=== PATIENT | male | born 1955 | race Caucasian/White ===

== ENCOUNTER 2017-04-23 10:28 | Emergency (ER) | payer MEDICAID, OTHER ==
[~2017-04-23 10:28] MED LIST: Z.0.NO CURRENT MEDS
[2017-04-23 10:29] VITALS: BP 129/66; PULSE 60; RESP 17; TEMP 98.6; O2SAT 99
[2017-04-23] MEDS ORDERED: IOHEXOL 350 MG/ML 10 ML VIAL (for RAD DIAG) IVCONTRAST ONE (10:29)
[2017-04-23] MEDS ORDERED: SODIUM CHLORIDE 0.9% FLUSH 10 ML FLUSH IV FLUSH PRN (11:15)
--- NOTE | 2017-04-23 11:17 | PD ---
HPI Chief Complaint: GI Complaint Time Seen by Provider: 10:57 Travel History International Travel<30 days: No Contact w/Intl Traveler<30days: No Traveled to known affect area: No History of Present Illness HPI 61-year-old male presents to the emergency department for evaluation of lower abdominal pain for 1 month. He also reports some rectal pressure and intermittent rectal bleeding. He states that when he wipes after having a bowel movement he'll have some bright red blood on the toilet paper. He states last time this happened was 2 days ago. He states he has had some intermittent diarrhea as well. No fevers or chills. No chest pain or shortness of breath. No nausea, vomiting. Patient denies any surgeries in the past. He has no chronic medical problems and takes no prescribed medications. He denies any previous surgeries. PFSH Past Medical History Medical History: Denies Significant Hx Cancer: No Diabetes: No Diminished Hearing: No Fibromyalgia: No Hepatitis: No Hiatal Hernia: No Immunizations Current: Yes Thyroid Disease: No Influenza Vaccination: No Past Surgical History Abdominal Surgery: No Cardiac Surgery: No Ear Surgery: No Endocrine Surgery: No Eye Surgery: No Genitourinary Surgery: Yes (LEFT TESTICLE) Gynecologic Surgery: No Oral Surgery: No Pacemaker: No Thoracic Surgery: No Other Surgery: Yes (RIGHT HAND SURGERY) Social History Alcohol Use: Yes (OCCASIONALLY) Tobacco Use: No Substance Use: Yes (MARIJUANA) Allergies-Medications (Allergen,Severity, Reaction): Coded Allergies: No Known Allergies (Verified , 04/23/17) Reported Meds & Prescriptions Reported Meds & Active Scripts Active No Active Prescriptions or Reported Medications Review of Systems Except as stated in HPI: all other systems reviewed are Neg Physical Exam Narrative GENERAL: Well-nourished, well-developed male patient, afebrile. SKIN: Focused skin assessment warm/dry. HEAD: Normocephalic. Atraumatic. EYES: No scleral icterus. No injection or drainage. NECK: Supple, trachea midline. No JVD or lymphadenopathy. CARDIOVASCULAR: Regular rate and rhythm without murmurs, gallops, or rubs. RESPIRATORY: Breath sounds equal bilaterally. No accessory muscle use. Lungs sounds are clear to auscultation. GASTROINTESTINAL: Abdomen soft, non-tender, nondistended. No abdominal pain to palpation MUSCULOSKELETAL: No cyanosis, or edema. BACK: Nontender without obvious deformity. No CVA tenderness. RECTAL EXAM: No masses or tenderness, stool is brown. Hemoccult is negative. This exam was done with Pedro RN, at bedside. Data Data Last Documented VS Vital Signs Date Time Temp Pulse Resp B/P (MAP) Pulse Ox O2 Delivery O2 Flow Rate FiO2 04/23/17 10:29 98.6 60 17 129/66 (87) 99 Orders Orders Complete Blood Count With Diff (04/23/17 11:07) Comprehensive Metabolic Panel (04/23/17 11:07) Lipase (04/23/17 11:07) Iv Access Insert/Monitor (04/23/17 11:07) Ecg Monitoring (04/23/17 11:07) Oximetry (04/23/17 11:07) Sodium Chloride 0.9% Flush (Ns Flush) (04/23/17 11:15) Ct Abd/Pel W Iv Contrast(Rout) (04/23/17 ) Iohexol 350 Inj (Omnipaque 350 Inj) (04/23/17 10:29) Labs Laboratory Tests Test 04/23/17 11:10 White Blood Count 8.1 TH/MM3 Red Blood Count 5.25 MIL/MM3 Hemoglobin 15.9 GM/DL Hematocrit 47.4 % Mean Corpuscular Volume 90.3 FL Mean Corpuscular Hemoglobin 30.2 PG Mean Corpuscular Hemoglobin Concent 33.5 % Red Cell Distribution Width 13.7 % Platelet Count 195 TH/MM3 Mean Platelet Volume 8.6 FL Neutrophils (%) (Auto) 54.4 % Lymphocytes (%) (Auto) 33.1 % Monocytes (%) (Auto) 7.0 % Eosinophils (%) (Auto) 5.0 % Basophils (%) (Auto) 0.5 % Neutrophils # (Auto) 4.4 TH/MM3 Lymphocytes # (Auto) 2.7 TH/MM3 Monocytes # (Auto) 0.6 TH/MM3 Eosinophils # (Auto) 0.4 TH/MM3 Basophils # (Auto) 0.0 TH/MM3 CBC Comment DIFF FINAL Differential Comment Blood Urea Nitrogen 14 MG/DL Creatinine 0.91 MG/DL Random Glucose 88 MG/DL Total Protein 7.8 GM/DL Albumin 4.3 GM/DL Calcium Level 9.0 MG/DL Alkaline Phosphatase 58 U/L Aspartate Amino Transf (AST/SGOT) 17 U/L Alanine Aminotransferase (ALT/SGPT) 33 U/L Total Bilirubin 0.5 MG/DL Sodium Level 138 MEQ/L Potassium Level 4.5 MEQ/L Chloride Level 103 MEQ/L Carbon Dioxide Level 28.6 MEQ/L Anion Gap 6 MEQ/L Estimat Glomerular Filtration Rate 85 ML/MIN Lipase 212 U/L [facility] Medical Decision Making Medical Screen Exam Complete: Yes Emergency Medical Condition: Yes Medical Record Reviewed: Yes Interpretation(s) CT abdomen/pelvis - CONCLUSION: Normal examination. Differential Diagnosis Colitis versus diverticulitis versus hemorrhoids Narrative Course 61-year-old male presents to the emergency department for evaluation of lower abdominal pain, rectal pressure that has been ongoing for 1 month. He does appear well on exam. No abdominal pain to palpation. CBC is unremarkable. CMP shows no acute abnormality. Lipase is 212. CT scan of the abdomen/pelvis with IV contrast is ordered and pending due to patient's age and no previous study. CT abdomen/pelvis shows no acute abnormality. My attending physician, Dr. Blackwood, saw patient as well. He agrees with plan and disposition. Labs and imaging are reassuring. Patient is instructed to follow up with GI for colonoscopy. He verbalizes agreement and understanding. Diagnosis Primary Impression: Abdominal pain Qualified Codes: R10.9 - Unspecified abdominal pain Referrals: Primary Care Physician call for appointment Patient Instructions: Abdominal Pain (ED), General Instructions Additional Instructions: Follow up with billet heater. Return to the emergency department for any acute, worsening of symptoms. Med/Other Pt SpecificInfo: No Change to Meds Scripts No Active Prescriptions or Reported Meds Disposition: 01 DISCHARGE HOME Condition: Stable Petrona Fountain ELIZABETH Apr 23, 2017 11:17
[2017-04-23 11:28] LABS: AUTOMATED NEUTROPHIL # 4.4 TH/MM3 (1.8-7.7); BASOPHIL % 0.5 % (0.0-2.0); EOSINOPHIL # 0.4 TH/MM3 (0-0.4); HEMATOCRIT 47.4 % (39.0-51.0); HEMO FLAGS DIFF FINAL; LYMPH % 33.1 % (9.0-44.0); LYMPHOCYTE # 2.7 TH/MM3 (1.0-4.8); MEAN CELL VOLUME 90.3 FL (80.0-100.0); MEAN CORPUSCULAR HEMOGLOBIN 30.2 PG (27.0-34.0); MEAN CORPUSCULAR HGB CONC 33.5 % (32.0-36.0); NEUT % 54.4 % (16.0-70.0); PLATELET COUNT 195 TH/MM3 (150-450); RED BLOOD COUNT 5.25 MIL/MM3 (4.50-5.90); RED CELL DISTRIBUTION WIDTH 13.7 % (11.6-17.2); WHITE BLOOD COUNT 8.1 TH/MM3 (4.0-11.0)
[2017-04-23 11:42] LABS: ALT (GPT) 33 U/L (12-78); ANION GAP 6 MEQ/L (5-15); AST (GOT) 17 U/L (15-37); BICARBONATE 28.6 MEQ/L (21.0-32.0); BLOOD UREA NITROGEN 14 MG/DL (7-18); CHLORIDE 103 MEQ/L (98-107); GLOMERULAR FILTRATION RATE 85 ML/MIN (>89); POTASSIUM 4.5 MEQ/L (3.5-5.1); SODIUM (NA) 138 MEQ/L (136-145)
[2017-04-23 11:44] LABS: ALKALINE PHOSPHATASE 58 U/L (45-117); TOTAL BILIRUBIN ADULT 0.5 MG/DL (0.2-1.0)
--- NOTE | 2017-04-23 14:04 | RADRPT ---
EXAM DATE/TIME: 04/23/2017 13:33 [facility] COMPARISON: No previous studies available for comparison. INDICATIONS : Patient complains of lower abdominal pain with blood in stool, IV CONTRAST: 95 cc Omnipaque 350 (iohexol) IV ORAL CONTRAST: No oral contrast ingested. RADIATION DOSE: 9.72 CTDIvol (mGy) MEDICAL HISTORY : None SURGICAL HISTORY : left testicle surgery ENCOUNTER: Initial ACUITY: 1 day PAIN SCALE: 0/10 LOCATION: lower quadrant TECHNIQUE: Volumetric scanning of the abdomen and pelvis was performed. Using automated exposure control and ad justment of the mA and/or kV according to patient size, radiation dose was kept as low as reasonably achievable to obtain optimal diagnostic quality images. DICOM format image data is available electro nically for review and comparison. FINDINGS: LOWER LUNGS: The visualized lower lungs are clear. LIVER: Homogeneous density without lesion. There is no dilation of the biliary tree. No calcified gallston es. SPLEEN: Normal size without lesion. PANCREAS: Within normal limits. KIDNEYS: Normal in size and shape. There is no mass, stone or hydronephrosis. ADRENAL GLANDS: Both minimally prominent likely hyperplasia. VASCULAR: There is no aortic aneurysm. BOWEL/MESENTERY: The stomach, small bowel, and colon demonstrate no acute abnormality. There is no free intraperitone al air or fluid. ABDOMINAL WALL: Within normal limits. RETROPERITONEUM: There is no lymphadenopathy. BLADDER: No wall thickening or mass. REPRODUCTIVE: Within normal limits. INGUINAL: There is no lymphadenopathy or hernia. MUSCULOSKELETAL: Within normal limits for patient age. CONCLUSION: Normal examination. Milind Aguila MD on April 23, 2017 at 14:01 Board Certified Radiologist. This report was verified electronically.
== END 2017-04-23 14:25 | disposition home or self-care (01) ==
LOC: NEPD 10:28
DX: R10.30 Lower abdominal pain, unspecified (principal)
CPT/HCPCS: 74177; 80053; 83690; 85025; 99284; Q9967

== ENCOUNTER 2017-09-27 10:50 | Emergency (ER) | payer MEDICAID ==
[2017-09-27 11:19] VITALS: BP 138/67; PULSE 63; RESP 18; TEMP 98.5; O2SAT 98
--- NOTE | 2017-09-27 12:28 | PD ---
HPI Chief Complaint: Skin Problem Time Seen by Provider: 12:15 Travel History International Travel<30 days: No Contact w/Intl Traveler<30days: No Traveled to known affect area: No History of Present Illness HPI 62-year-old male presents to the emergency department with concern of a spot on his right calf that he has noticed a few months ago. He thinks it may be melanoma. He says the area is tender to touch and he can palpate some bumps under the skin. He denies paresthesias, loss of sensation, leg edema. Denies fever, vomiting. Rates pain 4/10. Describes it as a burning sensation in his leg. Says it feels like something is wrong with his circulation. Pain is worse with walking. Denies history of blood clots. Denies anticoagulant therapy. Has not taken any medication or tried any treatments to alleviate his symptoms. No primary care provider. Denies significant past medical history. No known allergies. Has no other medical complaints. No other modifying factors or associated signs and symptoms. PFSH Past Medical History Cancer: No Diabetes: No Diminished Hearing: No Fibromyalgia: No Hepatitis: No Hiatal Hernia: No Immunizations Current: Yes Thyroid Disease: No Past Surgical History Abdominal Surgery: No Cardiac Surgery: No Ear Surgery: No Endocrine Surgery: No Eye Surgery: No Genitourinary Surgery: Yes (LEFT TESTICLE) Gynecologic Surgery: No Oral Surgery: No Pacemaker: No Thoracic Surgery: No Other Surgery: Yes (RIGHT HAND SURGERY) Social History Alcohol Use: No Tobacco Use: No Substance Use: No Allergies-Medications (Allergen,Severity, Reaction): Coded Allergies: No Known Allergies (Verified Adverse Reaction, Unknown, 09/27/17) Reported Meds & Prescriptions Reported Meds & Active Scripts Active No Active Prescriptions or Reported Medications Review of Systems Except as stated in HPI: all other systems reviewed are Neg Physical Exam Narrative GENERAL: Well-nourished, well-developed male patient, in no acute distress SKIN: Warm and dry. Small, proximally 0.5 cm in diameter, flesh-colored, slightly raised palpable skin lesion to the mid right calf. Small palpable nodule under the skin, less than 0.5 cm, to the right calf. HEAD: Atraumatic. Normocephalic. EYES: Pupils equal and round. No scleral icterus. No injection or drainage. ENT: Mucosa pink and moist. Airway patent. NECK: Trachea midline. CARDIOVASCULAR: Regular rate. RESPIRATORY: No accessory muscle use. GASTROINTESTINAL: Flat. MUSCULOSKELETAL: Right lower extremity supple and non-tense with 2+ pedal pulse and sensory intact without erythema or edema. Reproducible tenderness on palpation to the posterior upper calf. No obvious deformities. No clubbing. No cyanosis. No edema. NEUROLOGICAL: Awake and alert. Oriented 3. No obvious cranial nerve deficits. Motor grossly within normal limits. Normal speech. PSYCHIATRIC: Appropriate mood and affect; insight and judgment normal. Data Data Last Documented VS Vital Signs Date Time Temp Pulse Resp B/P (MAP) Pulse Ox O2 Delivery O2 Flow Rate FiO2 09/27/17 11:19 98.5 63 18 138/67 (90) 98 Orders Orders Us Leg Venous Doppler (09/27/17 ) Ed Discharge Order (09/27/17 13:44) [facility] Medical Decision Making Medical Screen Exam Complete: Yes Emergency Medical Condition: Yes Medical Record Reviewed: Yes Differential Diagnosis DVT, superficial thrombosis, skin lesion, nodule Narrative Course 62-year-old male with right calf pain and a palpable nodule under the skin. There is also a slightly raised, flesh-colored lesion on the skin of the calf. There is no erythema, edema, warmth to the site. There is tenderness on palpation. I will order venous Doppler ultrasound of the right leg to rule out blood clot. I offered patient pain medication and he declined. 1339: Right leg venous Doppler ultrasound concludes: Lower Extremity Ultrasound 09/27/17 0000 Signed Impressions: Service Date/Time: Wednesday, September 27, 2017 12:44 - CONCLUSION: Negative for deep venous thrombosis. Solid 0.4 mm subcutaneous nodule, palpable of uncertain significance Mak Santamaria MD FACR Patient provided a copy of the ultrasound report. Instructed patient to follow up with safety grooving machine operator. I for the patient prescription for pain medication and he declined. Instructed patient to follow up with primary care provider. Patient verbalizes understanding and agreement with treatment plan. Patient is medically cleared and stable for discharge. Discussed reasons to return to the emergency department. Patient agrees with treatment plan. The patients vital signs are stable and the patient is stable for outpatient follow-up and treatment. Patient discharged home, stable and in no acute distress. Diagnosis Primary Impression: Right leg pain Additional Impression: Subcutaneous nodule Referrals: [facility] Manager Housekeeping Primary Care Physician Patient Instructions: General Instructions, Leg Pain (ED) Additional Instructions: Ibuprofen or Tylenol instructed nothing for pain Avoid aggravating activity Follow-up with dermatology Follow-up with primary care provider Return to the emergency department immediately with worsening of symptoms Med/Other Pt SpecificInfo: No Change to Meds, No Meds Exist/No RX given Scripts No Active Prescriptions or Reported Meds Disposition: 01 DISCHARGE HOME Condition: Stable Marie Pierre Sep 27, 2017 12:27
--- NOTE | 2017-09-27 13:16 | RADRPT ---
EXAM DATE/TIME: 09/27/2017 12:44 [facility] COMPARISON: No previous studies available for comparison. INDICATIONS : Right leg pain. MEDICAL HISTORY : Right leg pain. SURGICAL HISTORY : Left testicle surgery. Right hand surgery. ENCOUNTER: Initial ACUITY: 1 day PAIN SCORE: 0/10 LOCATION: Right leg. TECHNIQUE: Venous ultrasound of the leg was performed from the inguinal ligament to the proximal calf. Real-asa e, color Doppler and spectral tracing, compression and augmentation techniques were used. FINDINGS: There is normal compressibility of the deep venous system from the inguinal region to the proximal ca lf. No echogenic clot is seen in the lumen of the common femoral, femoral, popliteal, and posterior tibial veins. There is a normal response of the venous system to proximal and distal augmentation an d respiration. CONCLUSION: Negative for deep venous thrombosis. Solid 0.4 mm subcutaneous nodule, palpable of uncertain significance Mak Santamaria MD FACR on September 27, 2017 at 13:13 Board Certified Radiologist. This report was verified electronically.
== END 2017-09-27 14:21 | disposition home or self-care (01) ==
LOC: NEPD 10:50
DX: M79.661 Pain in right lower leg (principal); R22.41 Localized swelling, mass and lump, right lower limb
CPT/HCPCS: 93971; 99284